=== PATIENT | female | born 1990 | race Caucasian/White ===

== ENCOUNTER 2021-11-26 16:54 | Emergency (ER) | payer MEDICAID ==
[~2021-11-26] VITALS: Ht 162.6 cm; Wt 98.0 kg
[2021-11-26 17:16] VITALS: BP 145/92
[2021-11-26] MEDS ORDERED: ACETAMINOPHEN 325MG TABLET PO ONE (19:45)
== END 2021-11-26 21:39 | disposition home or self-care (01) ==
LOC: ER 16:54
DX: M25.522 Pain in left elbow (principal)
CPT/HCPCS: 73080; 99283